=== PATIENT | female | born 1955 | race Caucasian/White ===

== ENCOUNTER 2018-08-04 00:49 | Observation (INO) ==
[2018-08-04] MEDS ORDERED: Naloxone 0.4 MG/ML INJ IVP PRN ×2 (03:21→03:22)
--- NOTE | 2018-08-04 04:02 | Internal Med History&Physical ---
<EvelynArmand - Last Filed: 08/04/18 06:17> Date of Encounter: 08/04/18 Time of Encounter: 03:59 Internal Medicine - H&P: HPI Chief complaint: Palpitations Admitted From: Emergency Dept Plans for Post Hospital Care: Home History of present illness: Ms. Castanon is a 63 year old female with history of hypothyroidism, hypertension presents with palpitations. Patient states that she was sitting at home watching TV when suddenly she felt her heart racing and felt the palpitations up into her neck. She states this made her feel lightheaded and dizzy as well as extremely tired. She reports associated diaphoresis. She denies any chest pain or shortness of breath associated with this episode. She states she has had similar episodes to this in the past. She states this episode lasted about an hour and a half and has resolved spontaneously. She states that she still feels like her heart is "skipping a beat" but overall she feels better. Patient reports having a stress test approximately 20 years ago for similar symptoms when she was told that she had bigeminy. She reports history of hypothyroidism on levothyroxine and had her TSH checked approximately 3 months ago which she said was normal. She reports hypokalemia for which she takes potassium supplementation daily. She reports strong family history on both her mother and father's side of heart disease in their 60s. She reports that she took simvastatin many years ago and had leg pain associated with it. She has not taken any other statin medications. Patient is a never smoker. Past Med Surg Social Fam HX - Past Medical History Medical history: hyperlipidemia, hypertension, thyroid disease, other Additional medical history: "IRREGULAR HR", PHLEBITIS Psychiatric history: no psych history - Past Surgical History Surgical History: cholecystectomy, hysterectomy Additional surgical history: BILAT BREAST LUMPECTOMY - Social History Smoking Status: Never smoker Smokeless Tobacco Status: No Alcohol use: none Drug use: none - Family History Father Adopted: [place]: [place] Family Member Ethnicity: Non- Living Status: Age at : 83 Cause of : [place] Hx Family Cardiac Disorders: Yes Hx Family Respiratory Disorders: Yes (COPD) Hx Family Cancer: Yes (BLADDER CANCER) Hx Family GI Disorders: No Hx Family Genitourinary Disorders: No Hx Family Endocrine Disorder: Yes (DM) Hx Family Musculoskeletal Disorders: No Hx Family Neuromuscular Disorders: No Hx Family Neurologic Disorders: Yes (CVA) Hx Family HEENT Disorders: No Hx Family Autoimmune Disorders: No Hx Family Reproductive Disorders: No Hx Family Psychosocial Disorders: No Hx Family Medical Disorders: No Internal Medicine - H&P: Meds Levothyroxine [Synthroid] 150 mcg PO DAILY 08/03/18 [History] Potassium Chloride [K-Tab ER] 10 meq PO DAILY 08/03/18 [History] Triamterene/HCTZ 37.5/25mg [Dyazide] 1 tab PO DAILY 08/03/18 [History] Aspirin 81 mg PO DAILY 30 Days #30 tab.chew 08/04/18 [Rx] Colestipol HCl [Colestid] 1 gm PO BID 08/04/18 [History] 3 Allergy/AdvReac Type Severity Reaction Status Date / Time Influenza Virus Vaccines Allergy Hives Verified 08/03/18 23:25 propranolol [From Inderal LA] Allergy Hives Verified 08/03/18 23:25 pregabalin [From Lyrica] AdvReac See Verified 08/03/18 23:25 Comments Zxmqjep-[id number]-Ukd Reductase AdvReac See Verified 08/03/18 23:25 Inhibitor Comments [Statins] CHLOROPREP Allergy Hives Uncoded 08/03/18 23:25 All Systems PM: A 10-system review of systems was performed and is negative for pertinent findings except as documented above in the HPI. - Constitutional Constitutional: fatigue, no anorexia, no fever(s) - EENT Eyes: no blurry vision, no change in vision Nose, mouth and throat: no nasal congestion, no sinus pain, no sinus pressure - Cardiovascular Cardiovascular ROS IM: diaphoresis, irregular heart rhythm, lightheadedness, palpitations, no chest pain, no dyspnea, no edema, no syncope - Respiratory Respiratory: no cough, no dyspnea, no chest congestion - Gastrointestinal Gastrointestinal: no abdominal pain, no diarrhea, no nausea, no vomiting - Musculoskeletal Musculoskeletal ROS IM: muscle weakness (diffuse), no muscle cramps, no numbness , no tingling - Integumentary Integumentary IM: no erythema, no new lesions, no rash - Neurological Neurological ROS: disequilibrium, dizziness, weakness, no abnormal speech, no focal weakness, no headache(s), no numbness, no paresthesias, no tingling - Psychiatric Psychiatric: panic attacks (due to her fathers recent passing), no anxiety, no depression - Endocrine Endocrine IM: no polydipsia, no polyuria - Hematologic/Lymphatic Hematologic/Lymphatic: no easy bleeding - Allergic/Immunologic Allergic/Immunologic: no tongue swelling, no throat swelling - Constitutional Vitals: Temp Pulse Resp BP Pulse Ox 97.4 F L 79 16 132/78 97 08/04/18 03:21 08/04/18 03:21 08/04/18 03:21 08/04/18 03:21 08/04/18 03:21 General appearance: Present: A&O X 3, pleasant, no acute distress, answers questions appropriately Exam: . - Head Head exam: Present: atraumatic, normal inspection, normocephalic - Eye Eye exam: Present: EOMI, PERRL - ENT ENT exam: Present: mucous membranes moist - Neck Neck exam general surgery: Present: full ROM - Respiratory Respiratory exam: Present: CTAB. Absent: rales, rhonchi, wheezes - Cardiovascular Cardiovascular exam: Present: +S1, +S2. Absent: gallop, rubs, systolic murmur, tachycardia Additional comments: Regular rhythm with intermittent irregularity, likely indicative PVCs. - GI/Abdominal GI/Abdominal exam: Present: normal bowel sounds, soft. Absent: distended, tenderness - Extremities Exam Extremities exam: Present: warm. Absent: pedal edema, tenderness - Neurological Exam Neurological exam: Present: alert, CN II-XII intact, oriented X3, no focal deficits - Skin Skin exam: Present: dry, intact, warm - Assessment and plan (1) Palpitations Status: Acute Assessment and plan: History presents with palpitations. Likely indicative of PVCs. Causing the patient significant symptoms. EKG reveals sinus rhythm with PVCs and nonspecific ST depression in lead II and V5. Initial troponin is negative. Patient has had these for many years and they appear to be worsening. Possibly related to hypokalemia or hypothyroidism. Underlying myocardial ischemia cannot be completely excluded. Patient has risk factors for coronary disease including prediabetes, hypertension, obesity, family history. Given his risk factors and the patient's symptoms I do think it is appropriate to perform cardiac stress testing. Patient can walk on the treadmill so will order exercise stress with nuclear imaging. We will keep the patient nothing by mouth , trending troponins, cardiac telemetry, replace electrolytes. Check TSH, lipid panel. If stress testing is negative patient may benefit from treatment with a beta diamond. Of note patient also reports history of statin intolerance while on simvastatin. She states this is the only statin she has been on. If statin therapy is required patient may benefit from a trial of rosuvastatin which tends to have less incidence of myalgias as a side effect. I did discuss this with the patient. (2) Hypokalemia Status: Acute Assessment and plan: Potassium 3.0 on arrival. Patient takes potassium chloride 10 mEq daily. She may require further supplementation. We will supplement while in the hospital with 40 mEq 2 doses. We will check magnesium. Could be contributing to the patient's worsening PVCs (3) Hypertension Status: Acute Assessment and plan: Blood pressure at goal upon arrival at 132/78. On triamterene/ hydrochlorothiazide combination. Given the patient's PVCs as discussed above she may benefit from a beta diamond which would help control her PVCs as well as help with her blood pressure. Will not start beta diamond at this time as plan is to have patient undergo cardiac stress testing. Qualifiers: Hypertension type: essential hypertension Qualified Code(s): I10 - Essential (primary) hypertension (4) Hypothyroidism Status: Acute Assessment and plan: Currently on levothyroxine 150 g daily. Patient states that her last TSH check was normal. Hyperthyroidism could contribute to palpitations. Check thyroid cascade. Qualifiers: Hypothyroidism type: unspecified Qualified Code(s): E03.9 - Hypothyroidism , unspecified (5) DVT prophylaxis Status: Acute Assessment and plan: Heparin 5000 units subcutaneous twice a day. - Time Spent With Patient Total time spent is greater than 50% in coordination of care (as documented) at patient's floor/unit and/or counseling patient: <Kathy Marie A - Last Filed: 08/05/18 18:59> Date of Encounter: 08/04/18 Internal Medicine - H&P: HPI History of present illness: Ms. Castanon is a 63 year old female All Systems PM: A 10-system review of systems was performed and is negative for pertinent findings except as documented above in the HPI. - Constitutional Vitals: Temp Pulse Resp BP Pulse Ox 97.6 F 90 12 151/84 96 08/04/18 10:17 08/04/18 10:17 08/04/18 10:17 08/04/18 10:17 08/04/18 10:17 Internal Med - H&P Results - Labs CBC & Chem 7: 08/04/18 06:05 08/04/18 11:38 - Assessment and plan (1) Palpitations Status: Acute (2) Hypertension Status: Acute Qualifiers: Hypertension type: essential hypertension Qualified Code(s): I10 - Essential (primary) hypertension (3) Hypothyroidism Status: Acute Qualifiers: Hypothyroidism type: unspecified Qualified Code(s): E03.9 - Hypothyroidism , unspecified (4) Hypokalemia Status: Acute (5) DVT prophylaxis Status: Acute - Time Spent With Patient Total time spent is greater than 50% in coordination of care (as documented) at patient's floor/unit and/or counseling patient: - Attending Attestation Patient seen and examined. Case discussed with resident. Agree with assessment and plan.
[2018-08-04] MEDS ORDERED: *HR* Heparin 5,000 UNIT/ML VIAL SQ SCH (06:00)
[2018-08-04 06:26] LABS: Basophils # 0.1 K/mcL (0.0-0.2); Basophils % 0.7 %; Eosinophils # 0.3 K/mcL (0.0-0.6); Eosinophils % 3.7 %; Hematocrit 42.6 % (35.3-44.9); Hemoglobin 14.6 g/dL (11.5-15.4); Immature Granulocytes % 0.1 % (0-4); Lymphocytes # 2.7 K/mcL (0.6-4.6); Lymphocytes % 38.1 %; Mean Corpuscular HGB Conc 34.3 g/dL (31.6-35.5); Mean Corpuscular Volume 87.5 fL (83.0-100.0); Mean Platelet Volume 10.2 fL (9.4-12.4); Monocytes # 0.6 K/mcL (0.0-1.3); Monocytes % 8.2 %; Neutrophils # 3.5 K/mcL (1.6-8.9); Platelet Count 291 K/mcL (140-400); Red Blood Count 4.87 M/mcL (3.82-4.97); Red Cell Distribution Width 12.7 % (11.5-14.5); Segmented Neutrophils % 49.2 %
[2018-08-04 06:45] LABS: Troponin I < 0.03 ng/mL (< 0.04)
[2018-08-04 06:48] LABS: BUN/Creatinine Ratio 38 (6-26); Blood Urea Nitrogen 27 mg/dL (8-23); Calcium 9.3 mg/dL (8.6-10.3); Carbon Dioxide 25 mEq/L (23-29); Chloride 104 mEq/L (98-107); Chol/HDL Ratio 4.8 (0-4.9); Cholesterol 210 mg/dL (< 200); Glucose 125 mg/dL (70-105); HDL Cholesterol 44 mg/dL (40-59); LDL Cholesterol,Calculated 123 mg/dL (0-99); Osmolality,Calculated 297 (280-300); Sodium 140 mEq/L (136-145); Triglycerides 216 mg/dL (< 150); eGFR For Non-African Americans > 60 (> 60)
[2018-08-04 06:59] LABS: Thyroid Stimulating Hormone 1.753 mcIU/mL (0.340-5.600)
[2018-08-04] MEDS ORDERED: Aspirin 81 MG TAB.CHEW PO SCH (09:00)
[2018-08-04] MEDS ORDERED: Regadenoson 0.4 MG/5 ML SYRINGE IVP ONE (09:11)
[2018-08-04 10:18] VITALS: BP 151/84
--- NOTE | 2018-08-04 10:56 | Event Note ---
Date of Encounter: 08/04/18 Time of Encounter: 10:55 Came in with palpitations and has risk factors for CADD. Completed nuclear stress test this am. Follow up results. Agree with plan per night team
[2018-08-04 12:10] LABS: Potassium 3.3 mEq/L (3.5-5.1); Troponin I < 0.03 ng/mL (< 0.04)
--- NOTE | 2018-08-04 12:38 | Discharge Summary ---
Orders not resulted at time of discharge: Pending orders 08/04/18 03:42 NM radha perf SPECT multi [NM] Routine 08/05/18 04:00 Magnesium AM 0400 08/06/18 04:00 Magnesium AM 0400 08/07/18 04:00 Magnesium AM 0400 08/08/18 04:00 Magnesium AM 0400 Date of Encounter: 08/04/18 Time of Encounter: 12:30 - Discharge Diagnosis (1) Palpitations Priority: Primary Status: Acute Assessment and Plan: 63 year old female with history of hypothyroidism, hypertension presents with palpitations. Patient states that she was sitting at home watching TV when suddenly she felt her heart racing and felt the palpitations up into her neck. She states this made her feel lightheaded and dizzy as well as extremely tired. She reports associated diaphoresis. She denies any chest pain or shortness of breath associated with this episode. She states she has had similar episodes to this in the past. She was assessed to rule out ACS based on chest discomfort and significant risk factors for CAD. She had troponins which came back WNL. She had a nuclear stress test done which came back showing no acute abnormalities. She was therefore discharged in a stable condition. She will follow up with her PCP (2) Hypertension Priority: Primary Status: Acute Qualifiers: Hypertension type: essential hypertension Qualified Code(s): I10 - Essential (primary) hypertension (3) Hypothyroidism Priority: Secondary Status: Acute Qualifiers: Hypothyroidism type: unspecified Qualified Code(s): E03.9 - Hypothyroidism , unspecified (4) Hypokalemia Priority: Secondary Status: Acute (5) DVT prophylaxis Priority: Secondary Status: Acute Hospital course: Ms. Castanon is a 63 year old female - Time Spent with Patient Total time spent providing and/or coordinating discharge services: - Discharge Medications Prescriptions: Aspirin 81 mg PO DAILY 30 Days #30 tab.chew Home Medications: Levothyroxine [Synthroid] 150 mcg PO DAILY 08/03/18 [History] Potassium Chloride [K-Tab ER] 10 meq PO DAILY 08/03/18 [History] Triamterene/HCTZ 37.5/25mg [Dyazide] 1 tab PO DAILY 08/03/18 [History] Aspirin 81 mg PO DAILY 30 Days #30 tab.chew 08/04/18 [Rx] Colestipol HCl [Colestid] 1 gm PO BID 08/04/18 [History] Allergies/Adverse Reactions: 3 Allergy/AdvReac Type Severity Reaction Status Date / Time Influenza Virus Vaccines Allergy Hives Verified 08/03/18 23:25 propranolol [From Inderal LA] Allergy Hives Verified 08/03/18 23:25 pregabalin [From Lyrica] AdvReac See Verified 08/03/18 23:25 Comments Pnzgiin-Jgk-Ccj Reductase AdvReac See Verified 08/03/18 23:25 Inhibitor Comments [Statins] CHLOROPREP Allergy Hives Uncoded 08/03/18 23:25 Date of admission: 08/04/18 03:07 Primary care physician: Fer Gudino - Constitutional Vitals: Temp Pulse Resp BP Pulse Ox 97.6 F 90 12 151/84 96 08/04/18 10:17 08/04/18 10:17 08/04/18 10:17 08/04/18 10:17 08/04/18 10:17 General appearance: Present: A&O X 3, pleasant, no acute distress, answers questions appropriately Exam: . - Head Head exam: Present: atraumatic, normocephalic - Eye Eye exam: Present: PERRL, conjuntiva pink, sclera anicteric Pupils: Present: PERRL - Neck Neck exam general surgery: Present: supple, trachea midline. Absent: lymphadenopathy - Respiratory Respiratory exam: Present: CTAB. Absent: accessory muscle use, rales, rhonchi, wheezes - Cardiovascular Cardiovascular exam: Present: RRR, +S1, +S2. Absent: diastolic murmur, gallop, rubs, systolic murmur - GI/Abdominal GI/Abdominal exam: Present: normal bowel sounds, soft, no peritoneal signs. Absent: distended, tenderness - Extremities Exam Extremities exam: Present: warm, radial pulses palpable and symmetrical. Absent : calf tenderness, cyanotic, pedal edema - Neurological Exam Neurological exam: Present: CN II-XII intact, oriented X3, no focal deficits. Absent: pronater drift, facial droop, speech deficit - Skin Skin exam: Present: dry, intact - Patient Status Disposition: Home, Self-Care Condition: Good - Discharge Instructions Instructions: Aspirin (By mouth), Chest Pain (DC), Palpitations (DC), Chronic Hypertension (DC) Follow Up With: Fer Gudino MD [Primary Care Provider] -
== END 2018-08-04 13:40 | disposition home or self-care (01) ==
LOC: 3BNU
PROVIDERS: ADMIT Internal Medicine; ATTEND Internal Medicine